=== PATIENT | male | born 1990 ===

== ENCOUNTER 2018-01-17 22:34 | Emergency (ER) | payer BC ==
[2018-01-17 22:44] VITALS: TEMP 98.5
[2018-01-17 23:03] VITALS: RESP 18
[2018-01-17] MEDS ORDERED: Sodium Chloride 0.9% 1,000 ML IV STA (23:54)
[2018-01-17 23:55] LABS: BASO # 0.1 K/uL (0.0-0.2); BASO % 0.8 % (0.0-2.0); EOS # 0.2 K/uL (0.0-0.7); EOS % 2.8 % (0.0-4.0); HEMOGLOBIN 15.6 g/dL (12.0-18.0); LYMPH # 2.2 K/uL (1.0-4.3); LYMPH % 27.5 % (20.0-40.0); MEAN CELL VOLUME 87.5 fl (80.0-94.0); MEAN CORPUSCULAR HEMOGLOBIN 29.9 pg (27.0-31.0); MEAN CORPUSCULAR HGB CONC 34.1 g/dL (33.0-37.0); MEAN PLATELET VOLUME 11.6 fl (7.2-11.7); MONO # 0.6 K/uL (0.0-0.8); MONO % 7.3 % (0.0-10.0); NEUT # 4.9 K/uL (1.8-7.0); NEUT % 61.6 % (50.0-75.0); NRBC % 0.1 % (0.0-0.0); RBC 5.21 Mil/uL (4.40-5.90); RED CELL DISTRIBUTION WIDTH 11.9 % (11.5-14.5); WHITE BLOOD COUNT 7.9 K/uL (4.8-10.8)
[2018-01-17 23:59] LABS: ALB/GLOB RATIO 1.3 (1.0-2.1); ALBUMIN 4.3 g/dL (3.5-5.0); ALT/SGPT 35 U/L (21-72); AST/SGOT 29 U/L (17-59); BLOOD UREA NITROGEN 20 mg/dl (9-20); CALCIUM 9.5 mg/dL (8.4-10.2); GFR NON-AFRICAN AMERICAN > 60
--- NOTE | 2018-01-18 00:38 | ED PDOC ---
Syncope/Near Syncope/Dizziness Time Seen by Provider: 01/17/18 22:52 Chief Complaint (Nursing): Syncope Chief Complaint (Provider): syncope History Per: Patient, Family () History/Exam Limitations: no limitations Onset/Duration Of Symptoms: Mins Current Symptoms Are (Timing): Better Activity At Onset Of Symptoms: Lying Possible Causative Factor(s): Other (pain) Fall Associated With With Symptoms: No, No Injury As Result Of Fall Additional Complaint(s): 27 y/o male ambulates to ED for evaluation of fainting episode prior to arrival. Patient states he banged his elbow on the wood piece of his couch arm ; states the pain was very intense so he walked to the couch and laid down. Patient states he then remembers waking up with by his side. As per , patient passed out while on the couch, saw him shaking for a few seconds and when she went over to him he woke up. Patient states he has slight elbow pain and feels tired, otherwise has not other complaints. Patient denies headache, dizziness, extremity numbness/weakness, cough, chest pain, shortness of breath, palpitations, urine/bowel incontinence. Past Medical History Reviewed: Historical Data, Nursing Documentation, Vital Signs Vital Signs: Last Vital Signs Temp 98.5 F 01/17/18 22:40 Pulse 61 01/17/18 23:02 Resp 18 01/17/18 23:02 BP 108/74 01/17/18 23:02 Pulse Ox 100 01/17/18 23:02 - Medical History PMH: Seizures (x 2 as a small child) - Surgical History Surgical History: No Surg Hx - Family History Family History: States: No Known Family Hx - Living Arrangements Living Arrangements: With Family - Home Medications Home Medications: Ambulatory Orders Medication Instructions Recorded Fluticasone Nasal [Flonase] 1 actuation NS BID #1 bottle 01/18/18 Guaifenesin/Pseudoephedrne HCl 1 - 2 tab PO Q12 PRN #20 ter 01/18/18 [Mucinex D 600 mg-60 mg] - Allergies Allergies/Adverse Reactions: Allergies Allergy/AdvReac Type Severity Reaction Status Date / Time No Known Allergies Allergy Verified 01/17/18 22:40 Review of Systems ROS Statement: Except As Marked, All Systems Reviewed And Found Negative Musculoskeletal: Positive for: Arm Pain Physical Exam - Reviewed Nursing Documentation Reviewed: Yes Vital Signs Reviewed: Yes - Physical Exam Appears: Positive for: Well, Non-toxic, No Acute Distress Head Exam: Positive for: ATRAUMATIC, NORMAL INSPECTION, NORMOCEPHALIC Skin: Positive for: Normal Color Eye Exam: Positive for: Normal appearance, EOMI, PERRL ENT: Positive for: Normal ENT Inspection Cardiovascular/Chest: Positive for: Regular Rate, Rhythm Respiratory: Positive for: Normal Breath Sounds Gastrointestinal/Abdominal: Positive for: Normal Exam Back: Positive for: Normal Inspection Extremity: Positive for: Normal ROM, Tenderness (tenderness lateral aspect right elbow and superior to right elbow; FROM. 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 States he is feeling better. Case discussed with ED attending Dr. Bray, agrees with plan to d/c and f/up outpatient Patient educated on findings, discharged with instructions to follow up PMD 2-3 days Return precautions given Patient demonstrates full understanding of discharge instructions Patient requires no further intervention in the ED and is stable for discharge at this time Upon discharge, patient requesting rx for "nasal and sinus congestion"; flonase , mucinex provided Disposition - Clinical Impression Clinical Impression: Syncope, Injury of elbow, Nasal congestion - Patient ED Disposition Is Patient to be Admitted: No Counseled Patient/Family Regarding: Studies Performed, Diagnosis, Need For Followup - Disposition Referrals: [facility] [Outside] Disposition: Routine/Home Disposition Time: 00:51 Condition: IMPROVED Prescriptions: Fluticasone Nasal [Flonase] 1 actuation NS BID #1 bottle Guaifenesin/Pseudoephedrne HCl [Mucinex D 600 mg-60 mg] 1 - 2 tab PO Q12 PRN # 20 ter PRN Reason: congestion Instructions: Syncope (Fainting), Taking Care of Bruises Forms: [employer] (Nepali)
[2018-01-18 01:10] VITALS: BP 110/72; PULSE 56
--- NOTE | 2018-01-18 07:43 | CARD ---
APPROVED REPORT Date of service: 01/18/2018 EKG Measurement Heart [id number] <Conclusion> Normal sinus rhythm Normal ECG
[2018-01-19 00:37] VITALS: O2SAT 100
== END 2018-01-18 01:09 | disposition home or self-care (01) ==
LOC: H.ER 22:34
DX: R55 Syncope and collapse (principal); S59.909A Unspecified injury of unspecified elbow, initial encounter; W19.XXXA Unspecified fall, initial encounter; Y92.89 Other specified places as the place of occurrence of the external cause
CPT/HCPCS: 80053; 83605; 85025; 93005; 96360; 99284; J7030